=== PATIENT | female | born 1950 | race Caucasian/White ===

== ENCOUNTER 2017-06-02 14:30 | Outpatient (CLI) | payer MEDICARE ==
[~2017-06-02] VITALS: Ht 167.6 cm; Wt 68.5 kg
[~2017-06-02 14:30] MED LIST: CALCIUM; CLD600T PO; LUTE6TAB PO; LUTEIN
[2017-06-02] MEDS ORDERED: CALC-697 PO (14:58)
[2017-06-02] MEDS ORDERED: LEVO50TA6 PO (14:58)
[2017-06-02] MEDS ORDERED: LUTE6TAB PO (14:58)
== END 2017-06-02 15:04 ==
LOC: PREOP 14:30
PROVIDERS: ATTEND Surgery
DX: Z01.818 Encounter for other preprocedural examination (principal); Z80.0 Family history of malignant neoplasm of digestive organs

== ENCOUNTER → 2018-07-14 | Outpatient (CLI) | payer MEDICARE ==
[~2018-07-14] MED LIST changes: +CALC-697 PO; +LEVO50TA6 PO
--- NOTE | 2018-07-14 13:50 | Diagnostic Imaging Report ---
INDICATION: Postmenopausal screening for osteoporosis. COMPARISON: None. FINDINGS: AP Spine L1-L4: [BMD (g/cm2): 1.099] [T-Score: -0.8] [Z-Score: 0.6] [BMD Previous: ] [BMD % Change: ] LT Hip Neck: [BMD (g/cm2): 0.739] [T-Score: -2.1] [Z-Score: -0.6] LT Hip Total: [BMD (g/cm2):0.908] [T-Score:-0.8] [Z-Score: 0.5] [BMD Previous: ] [BMD % Change: ] RT Hip Neck: [BMD (g/cm2):0.777] [T-Score:-1.9] [Z-Score:-0.4] RT Hip Total: [BMD (g/cm2):0.902] [T-score:-0.8] [Z-Score:0.4] [BMD Previous: ] [BMD % Change: ] *Indicates significant change from prior examination based on 95% confidence level. World Health Organization criteria for BMD interpretation classify patients as Normal (T-score at or above -1.0), Osteopenic (T-score between -1.0 and -2.5) or Osteoporotic (T-score at or below -2.5). LIMITATIONS AND MODIFICATION: None. FRACTURE RISK (FRAX SCORE): The ten year probability of (%): Major Osteoporotic Fracture: [ ] Hip Fracture: [ ] IMPRESSION: 1. Normal bone mineral density. 2. Baseline examination. 3. See below National Osteoporosis Foundation guidelines on when to potentially initiate pharmacologic therapy. Based on the National Osteoporosis Foundation Guidelines, pharmacologic treatment should be initiated in any of the following, unless clinical conditions suggest otherwise: * Any patient with prior fragility fracture of the hip or vertebrae. A spine fracture indicates 5X risk for subsequent spine fracture and 2X risk for subsequent hip fracture. * Osteoporosis (T-score <-2.5). * Postmenopausal women and men age 50 and older with low bone mass/osteopenia (T-score between -1.0 and -2.5) by DXA and 10-year major osteoporotic fracture greater than 20% or a 10-year probability of hip fracture greater than 3%. These fracture risks are supplied above in the FRAX score, if applicable. * Clinician judgement and/or patient preferences may indicate treatment for people with 10-year fracture probabilities above or below these levels. Dictated by: Dictated on workstation # [id number]
== END ==
LOC: RAD 09:03
PROVIDERS: ATTEND Internal Medicine
DX: Z13.820 Encounter for screening for osteoporosis (principal); M81.0 Age-related osteoporosis without current pathological fracture; Z78.0 Asymptomatic menopausal state
CPT/HCPCS: 77080

== ENCOUNTER → 2020-05-16 | Outpatient (CLI) | payer MEDICARE, OTHER ==
--- NOTE | 2020-05-16 11:59 | Diagnostic Imaging Report ---
PROCEDURE: CT head without contrast. TECHNIQUE: Multiple contiguous axial images were obtained through the brain without the use of intravenous contrast. Auto Exposure Controls were utilized during the CT exam to meet ALARA standards for radiation dose reduction. INDICATION: Headache on the left side. No prior studies are available for comparison. FINDINGS: Ventricles and sulci are within normal limits. No sulcal effacement or midline shift is identified. No acute intra-axial or extra-axial hemorrhage is detected. Cisterns are patent. Visualized paranasal sinuses are clear. IMPRESSION: No acute intracranial process is detected. Dictated by: Dictated on workstation # [id number]
== END ==
LOC: RAD 11:45
PROVIDERS: ATTEND Internal Medicine
DX: R51.9 Headache, unspecified (principal)
CPT/HCPCS: 70450

== ENCOUNTER → 2020-05-22 | Outpatient (CLI) | payer MEDICARE, OTHER ==
[~2020-05-22] MED LIST changes: +GADOBUTROL 7.5 MMOL/7.5 ML (GADAVIST) VIAL IV ONE
[2020-05-22 07:24] LABS: CREATININE SERUM 1.05 MG/DL (0.60-1.30)
--- NOTE | 2020-05-22 09:39 | Diagnostic Imaging Report ---
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 Patient has been having episodes of left-sided head and face pain. Exam: MRI of the brain performed without and with 7 cc of Gadavist IV contrast. Sequences include axial DWI, ADC map, axial gradient echo, axial T2, axial FLAIR, axial T1, axial T1 post IV contrast, coronal T1 fat-sat post IV contrast, and sagittal T1 post IV contrast. Comparison: Head CT without contrast dated 05/16/2020. Findings: There is no evidence of acute cerebral infarct, intracranial hemorrhage, or gross mass effect. There is a small developmental venous anomaly in the left temporal lobe region. The brain parenchymal volume appears appropriate for patient's age. There is a few focal areas of increased T2 signal involving the white matter of both cerebral hemispheres, likely representing chronic small vessel ischemic disease. There is normal darling-white matter distinction. There is no significant midline shift or herniation. The [place] of [place] vascular structures show no gross abnormality as visualized. The pituitary gland, sella, and suprasellar regions are unremarkable as visualized. There is no evidence of hydrocephalus. The basal cisterns are unremarkable. The skull, extracranial soft tissue, and orbits are unremarkable. There is small mucous retention cyst in the floor of the left maxillary sinus and minimal mucosal thickening involving the right maxillary sinus, frontal sinus, and ethmoid sinus. Temporal bones show no significant abnormality. IMPRESSION: 1: There is no CT evidence of acute intracranial process. 2: There is mild age-related brain parenchymal changes. 3: There is mild paranasal sinus disease. Dictated by: Dictated on workstation # [id number]
== END ==
LOC: RAD 08:00
PROVIDERS: ATTEND Internal Medicine
DX: R93.0 Abnormal findings on diagnostic imaging of skull and head, not elsewhere classified (principal); J34.89 Other specified disorders of nose and nasal sinuses; Z86.79 Personal history of other diseases of the circulatory system; Z83.3 Family history of diabetes mellitus
CPT/HCPCS: 36415; 70553; 82565; 84520

== ENCOUNTER → 2023-02-04 | Outpatient (CLI) | payer MEDICARE, OTHER ==
[~2023-02-04] MED LIST changes: +ASPI-1238 PO; +GABA-486 PO; -GADOBUTROL 7.5 MMOL/7.5 ML (GADAVIST) VIAL IV ONE; +PANT40TA52 PO; +SUCR1TAB PO
--- NOTE | 2023-02-04 09:33 | Diagnostic Imaging Report ---
PROCEDURE: US Gallbladder. TECHNIQUE: Multiple real-time grayscale images were obtained over the right upper quadrant in various projections. INDICATION: Epigastric pain. Liver is normal in size at 14 cm. The portal vein is patent and shows normal direction of flow. No liver mass is detected. Gallbladder is without stones or sludge. There is no wall thickening or biliary duct dilatation. Pancreas is unremarkable. Aorta is nonaneurysmal. IVC is patent. The right kidney is without calculi or hydronephrosis. There is no ascites. IMPRESSION: Unremarkable gallbladder ultrasound. Dictated by: Dictated on workstation # [id number]
== END ==
LOC: CARD 07:14
PROVIDERS: ATTEND Internal Medicine
DX: R00.2 Palpitations (principal); R10.13 Epigastric pain
CPT/HCPCS: 76705; 93005; 93225; 93226

== ENCOUNTER 2023-02-07 00:10 | Observation (INO) | payer MEDICARE, OTHER ==
[~2023-02-07] VITALS: Ht 167.7 cm; Wt 69.0 kg
[~2023-02-07 00:10] MED LIST changes: -ASPI-1238 PO; -GABA-486 PO; -PANT40TA52 PO; -SUCR1TAB PO
[2023-02-07] MEDS ORDERED: NITROGLYCERIN 0.4 MG SL TABS BTL 25'S SL PRN ×2 (00:15→08:00)
--- NOTE | 2023-02-07 00:27 | ED Chest Pain ---
General Chief Complaint: Chest Pain Stated Complaint: CP Nursing Triage Note: BROUGHT IN BY [facility] FOR BURNING BETWEEN SHOULDER BLADES WHEN LAYING DOWN. PT REPORTS PAIN RADIATED TO CHEST. DENIES PAIN AT THIS TIME. Source: patient History of Present Illness Date Seen by Provider: Feb 07, 2023 Time Seen by Provider: 00:14 Initial Comments PT ARRIVES VIA EMS FROM HOME C/O CHEST PAIN AND UPPER BACK PAIN THAT BEGAN AROUND 2300 TONIGHT, HAD JUST LAID DOWN TO GO TO SLEEP PAIN WAS A BURNING SENSATION AND WAS VERY INTENSE, BUT PAIN IS GONE NOW NO SHORTNESS OF BREATH NO SWEATS NO DIZZINESS OR SYNCOPE NO PALPITATIONS NO NAUSEA/VOMITING NO SWELLING IN LEGS/FEET OR PAIN IN [facility] EMS GAVE 324 MG ASPIRIN PT STATES THAT RECENTLY SHE HAS BEEN HAVING SOME PALPITATIONS, AND WORE A HOLTER MONITOR THIS WEEK FROM WEDNESDAY UNTIL THIS MORNING. PT HAS HYPOTHYROIDISM AND NEUROPATHY NO OTHER MEDICAL PROBLEMS AND NO PRIOR HISTORY OF ANY CARDIAC PROBLEMS. PT IS NON-SMOKER, NON-DRINKER SHE DOES USE MARIJUANA PCP: DR. DE LA ROSA Allergies and Home Medications Allergies Coded Allergies: Sulfa (Sulfonamide Antibiotics) (Unverified Adverse Reaction, Intermediate, 06/02/17) Patient Home Medication List Home Medication List Reviewed: Yes Calcium Carbonate/Vitamin D3 (Calcium 1,000 + D3 Caplet) 1 Each Tablet, 1 EACH PO DAILY, (Reported) Entered as Reported by: VI BEST on 06/02/17 145 Levothyroxine Sodium (Levothyroxine Sodium) 50 Mcg Tablet, 50 MCG PO DAILY, (Reported) Entered as Reported by: VI BEST on 06/02/17 1458 Lutein (Lutein) 6 Mg Tablet, 6 MG PO DAILY, (Reported) Entered as Reported by: VI BEST on 06/02/17 145 Review of Systems Review of Systems Constitutional: no symptoms reported EENTM: No Symptoms Reported Respiratory: No Symptoms Reported Cardiovascular: See HPI Gastrointestinal: No Symptoms Reported Genitourinary: No Symptoms Reported Musculoskeletal: no symptoms reported Skin: no symptoms reported Psychiatric/Neurological: Anxiety Endocrine: No Symptoms Reported Hematologic/Lymphatic: No Symptoms Reported Past Cqtykji-Oxdlgj-Ipcspm Hx Patient Social History Tobacco Use?: No Smoking Status: Never a Smoker Smokeless Tobacco Frequency: Never a User Use of E-Cig and/or Vaping dev: No Use of E-Cig and/or Vaping Candelario: Never a User Substance use?: Yes Substance type: Marijuana Alcohol Use?: No Pt feels they are or have been: No Immunizations Up To Date Tetanus Booster (TDap): Unknown First/Initial COVID19 Vaccinat: X2 Seasonal Allergies Seasonal Allergies: Yes (MILD) Past Medical History Surgery/Hospitalization HX: EYE SX, HYPOTHRYOIDISM Surgeries: Yes (LEFT EYE SURGERY ON [place]) Eye Surgery Respiratory: No Cardiac: No Neurological: Yes (SUBARACHNOID BLEED 2009 AFTER A FALL) Neuropathy, Traumatic Brain Injury Reproductive Disorders: No VOIP NETWORK TECHNICIAN History: Menopausal Sexually Transmitted Disease: No HIV/AIDS: No Genitourinary: No Gastrointestinal: Yes Hemorrhoids, Polyps Musculoskeletal: No Endocrine: Yes Hypothyroidsim HEENT: Yes (LEFT EYE SURGERY ON [place]) Loss of Vision: Bilateral Hearing Impairment: Denies Cancer: No Psychosocial: No Integumentary: No Blood Disorders: No Adverse Reaction/Blood Tranf: No (N/A) Physical Exam Vital Signs Vital Signs - First Documented 02/07/23 00:10 Temp 36.5 Pulse 71 Resp 16 B/P (MAP) 151/82 (105) Pulse Ox 96 O2 Delivery Room Air Capillary Refill : Less Than 3 Seconds Height, Weight, BMI Height: 5'6.00" Weight: 151lbs. 0.0oz. [id number]; 24.00 BMI Method:Stated General Appearance: No Apparent Distress, WD/WN, Anxious HEENT: PERRL/EOMI Neck: Normal Inspection Respiratory: Chest Non Tender, Normal Breath Sounds, No Accessory Muscle Use, No Respiratory Distress Cardiovascular: Regular Rate, Rhythm, No Edema, No JVD, No Murmur, Normal Peripheral Pulses Gastrointestinal: Non Tender, Soft Extremity: Normal Inspection, Non Tender, No Calf Tenderness, No Pedal Edema Neurologic/Psychiatric: Alert, Oriented x3, No Motor/Sensory Deficits, cryptologist II- XII Norm as Tested Skin: Normal Color, Warm/Dry Progress/Results/Core Measures Results/Orders Lab Results Laboratory Tests Test 02/07/23 00:14 02/07/23 03:07 Range/Units White Blood Count 6.4 4.3-11.0 10^3/uL Red Blood Count 4.01 3.80-5.11 10^6/uL Hemoglobin 12.9 11.5-16.0 g/dL Hematocrit 38 35-52 % Mean Corpuscular Volume 96 80-99 fL Mean Corpuscular Hemoglobin 32 25-34 pg Mean Corpuscular Hemoglobin Concent 34 32-36 g/dL Red Cell Distribution Width 11.8 10.0-14.5 % Platelet Count 237 130-400 10^3/uL Mean Platelet Volume 10.5 9.0-12.2 fL Immature Granulocyte % (Auto) 0 % Neutrophils (%) (Auto) 42 42-75 % Lymphocytes (%) (Auto) 43 12-44 % Monocytes (%) (Auto) 12 0-12 % Eosinophils (%) (Auto) 2 0-10 % Basophils (%) (Auto) 1 0-10 % Neutrophils # (Auto) 2.7 1.8-7.8 10^3/uL Lymphocytes # (Auto) 2.7 1.0-4.0 10^3/uL Monocytes # (Auto) 0.8 0.0-1.0 10^3/uL Eosinophils # (Auto) 0.2 0.0-0.3 10^3/uL Basophils # (Auto) 0.1 0.0-0.1 10^3/uL Immature Granulocyte # (Auto) 0.0 0.0-0.1 10^3/uL Prothrombin Time 12.3 12.2-14.7 SEC INR Comment 0.9 0.8-1.4 Activated Partial Thromboplast Time 24 24-35 SEC D-Dimer 0.98 H 0.00-0.49 UG/ML Sodium Level 140 135-145 MMOL/L Potassium Level 3.6 3.6-5.0 MMOL/L Chloride Level 106 98-107 MMOL/L Carbon Dioxide Level 24 21-32 MMOL/L Anion Gap 10 5-14 MMOL/L Blood Urea Nitrogen 20 H 7-18 MG/DL Creatinine 1.01 0.60-1.30 MG/DL Estimat Glomerular Filtration Rate 59 BUN/Creatinine Ratio 20 Glucose Level 106 H 70-105 MG/DL Calcium Level 9.7 8.5-10.1 MG/DL Corrected Calcium 9.8 8.5-10.1 MG/DL Magnesium Level 2.2 1.6-2.4 MG/DL Total Bilirubin 0.2 0.1-1.0 MG/DL Aspartate Amino Transf (AST/SGOT) 29 5-34 U/L Alanine Aminotransferase (ALT/SGPT) 38 0-55 U/L Alkaline Phosphatase 103 40-136 U/L Total Creatine Kinase 63 29-168 U/L Creatine Kinase MB 0.7 <6.6 NG/ML Myoglobin 19.3 10.0-92.0 NG/ML Troponin I < 0.028 < 0.028 <0.028 NG/ML B-Type Natriuretic Peptide 15.9 <100.0 PG/ML Total Protein 6.9 6.4-8.2 GM/DL Albumin 3.9 3.2-4.5 GM/DL Amylase Level 44 25-125 U/L Lipase 109 H 8-78 U/L My Orders Orders - LYNN MUHAMMAD DO Ed Iv/Invasive Line Start (02/07/23 00:14) Ekg Tracing (02/07/23 00:14) O2 (02/07/23 00:14) Monitor-Rhythm Ecg Trace Only (02/07/23 00:14) Amylase (02/07/23 00:14) Bnp Jami (02/07/23 00:14) Cbc With Automated Diff (02/07/23 00:14) Comprehensive Metabolic Panel (02/07/23 00:14) Creatine Kinase (02/07/23 00:14) Creatine Kinase Mb (02/07/23 00:14) Fibrin Degradation Products (02/07/23 00:14) Lipase (02/07/23 00:14) Magnesium (02/07/23 00:14) Protime With Inr (02/07/23 00:14) Partial Thromboplastin Time (02/07/23 00:14) Myoglobin Serum (02/07/23 00:14) Troponin I [place] (02/07/23 00:14) Chest 1 View, Ap/Pa Only (02/07/23 00:14) Nitroglycerin 0.4 Mg Btl 25's (Nitrostat (02/07/23 00:15) Ct Angio Chest W (R/O Pe) (02/07/23 01:29) Iohexol Injection (Omnipaque 350 Mg/Ml 1 (02/07/23 02:45) Received Contrast (Hold Metformin- Contr (02/07/23 02:45) Ns (Ivpb) (Sodium Chloride 0.9% Ivpb Bag (02/07/23 02:45) Troponin I [place] (02/07/23 02:55) Ekg Tracing (02/07/23 02:55) Medications Given in ED Current Medications Medications Dose Ordered Sig/[place] Route Start Time Stop Time Status Last Admin Dose Admin Iohexol 100 ml ONCE ONCE IV 02/07/23 02:45 02/07/23 03:02 DC 02/07/23 02:42 64 ML Sodium Chloride 100 ml ONCE ONCE IV 02/07/23 02:45 02/07/23 03:02 DC 02/07/23 02:42 69 ML Vital Signs/I&O 02/07/23 00:10 Temp 36.5 Pulse 71 Resp 16 B/P (MAP) 151/82 (105) Pulse Ox 96 O2 Delivery Room Air Blood Pressure Mean: 105 Progress Progress Note : Progress Note VITALS ON ARRIVAL: TEMP 36.5=97.7, HR 17, RR 16, BP 151/82, O2 SAT 96% ON ROOM AIR NO MEDICATIONS GIVEN DURING ER STAY, PT HAD NO COMPLAINTS FOR ENTIRE STAY, [facility] HAD GIVEN ASPIRIN PRIOR TO ARRIVAL LABS INCLUDING CBC, CMP, TROPONIN, BNP, COAGULATION STUDIES, D-DIMER, WELL EKG, CXR, CT CHEST ANGIOGRAM ORDERED CBC UNREMARKABLE CMP --NORMAL ELECTROLYTES, NORMAL RENAL FUNCTION, NORMAL LIVER FUNCTION, LIPASE MILDLY ELEVATED AT 109 TROPONIN IS NEGATIVE, IS 3 HOUR REPEAT TROPONIN PT/PTT/INR NORMAL. D-DIMER SLIGHTLY ELEVATED AT 0.98 EKG IS UNREMARKABLE, IS REPEAT EKG CXR IS UNREMARKABLE CT CHEST ANGIOGRAM DOES NOT SHOW ANY ACUTE FINDINGS PT REMAINED SYMPTOM-FREE FOR ENTIRE ER STAY, AND VITALS REMAINED NORMAL PT IS NOT COMFORTABLE GOING HOME, SHE STATES THE PAIN SHE HAD WAS SO INTENSE, AND HAD NEVER HAD ANYTHING LIKE THAT BEFORE. Initial ECG Impression Date: Feb 07, 2023 Initial ECG Impression Time: 00:20 Initial ECG Rate: 66 Initial ECG Rhythm: Normal Sinus Initial ECG Intervals: Normal Initial ECG Impression: Normal Initial ECG Comparisson: No Previous ECG Available Comment INTERPRETED BY ME EKG : EKG Time: 03:16 Rate: 53 Rhythm: S.Antonino Intervals: Normal ECG Comparisson: Unchanged Comment INTERPRETED BY ME Diagnostic Imaging Comments CXR--NO ACUTE PROCESS, PENDING RADIOLOGIST REVIEW CT CHEST ANGIOGRAM--PER [facility] VIA FAX AT [phone] -NO P.E. OR ACUTE FINGINGS Reviewed: Reviewed by Me Departure Communication (Admissions) 0355--SPOKE WITH DR. DE LA ROSA, ACCEPTS PT FOR ADMIT. WILL BE HOLDING/BOARDING PT HER IN ER UNTIL AFTER 0700 DUE TO STAFFING ISSUES 0630--SPOKE WITH DR. DE LA ROSA, UPDATE GIVEN. SHE WILL DO ADMIT ORDERS Impression Primary Impression: Chest pain Disposition: ADMITTED INPATIENT Condition: Stable Admissions Decision to Admit Reason: Admit from ER (General) Decision to Admit/Date: Feb 07, 2023 Time/Decision to Admit Time: 04:00 Departure-Patient Inst. Referrals: IVIS DE LA ROSA DO (PCP/Family) Primary Care Physician LYNN MUHAMMAD DO Feb 07, 2023 00:27
[2023-02-07 00:41] LABS: BASOPHILS # (AUTO) 0.1 10^3/uL (0.0-0.1); BASOPHILS % (AUTO) 1 % (0-10); EOSINOPHILS # (AUTO) 0.2 10^3/uL (0.0-0.3); EOSINOPHILS % (AUTO) 2 % (0-10); HEMATOCRIT 38 % (35-52); HEMOGLOBIN 12.9 g/dL (11.5-16.0); LYMPHOCYTES # (AUTO) 2.7 10^3/uL (1.0-4.0); LYMPHOCYTES % (AUTO) 43 % (12-44); MEAN CORPUSCULAR HEMOGLOBIN 32 pg (25-34); MEAN CORPUSCULAR HGB CONC 34 g/dL (32-36); MEAN CORPUSCULAR VOLUME 96 fL (80-99); MEAN PLATELET VOLUME 10.5 fL (9.0-12.2); MONOCYTES # (AUTO) 0.8 10^3/uL (0.0-1.0); MONOCYTES % (AUTO) 12 % (0-12); NEUTROPHILS # (AUTO) 2.7 10^3/uL (1.8-7.8); NEUTROPHILS % (AUTO) 42 % (42-75); PLATELET COUNT 237 10^3/uL (130-400); WHITE BLOOD COUNT 6.4 10^3/uL (4.3-11.0)
[2023-02-07 00:48] LABS: CHLORIDE 106 MMOL/L (98-107); POTASSIUM 3.6 MMOL/L (3.6-5.0); SODIUM 140 MMOL/L (135-145)
[2023-02-07 00:49] LABS: INR 0.9 (0.8-1.4); PROTHROMBIN TIME PATIENT 12.3 SEC (12.2-14.7)
[2023-02-07 00:52] LABS: FIBRIN DEGRADATION PRODUCTS 0.98 UG/ML (0.00-0.49)
[2023-02-07 00:56] LABS: ALBUMIN 3.9 GM/DL (3.2-4.5)
[2023-02-07 00:57] LABS: AMYLASE 44 U/L (25-125); CALCIUM 9.7 MG/DL (8.5-10.1)
[2023-02-07 00:58] LABS: GLUCOSE 106 MG/DL (70-105); TOTAL PROTEIN 6.9 GM/DL (6.4-8.2)
[2023-02-07 01:00] LABS: BILIRUBIN,TOTAL 0.2 MG/DL (0.1-1.0); CARBON DIOXIDE 24 MMOL/L (21-32)
[2023-02-07 01:02] LABS: ALKALINE PHOSPHATASE 103 U/L (40-136); CREATININE SERUM 1.01 MG/DL (0.60-1.30); GFR ESTIMATED 59
[2023-02-07 01:03] LABS: BUN/CREATININE RATIO 20
[2023-02-07 01:05] LABS: ALANINE AMINOTRANSFERASE 38 U/L (0-55); MAGNESIUM 2.2 MG/DL (1.6-2.4)
[2023-02-07 01:06] LABS: CREATINE KINASE 63 U/L (29-168); LIPASE 109 U/L (8-78)
[2023-02-07 01:13] LABS: CREATINE KINASE MB 0.7 NG/ML (<6.6)
[2023-02-07] MEDS ORDERED: HOLD METFORMIN - RECEIVED CONTRAST 20 ML VIAL IV SCH (02:45)
[2023-02-07] MEDS ORDERED: NS 100 ML (IVPB) BAG IV ONE (02:45)
[2023-02-07] MEDS ORDERED: IOHEXOL 350 MG/ML 100 ML (OMNIPAQUE 350) VIAL IV ONE (02:45)
--- NOTE | 2023-02-07 06:40 | Diagnostic Imaging Report ---
Technique: CTA of the chest was performed. 3-D reformats were obtained and reviewed. All CT scans use one or more of the following dose optimizing techniques: automated exposure control, MA and/or KvP adjustment based on a patient size and exam type, or iterative reconstruction. Reason for exam: Back pain. Chest pain. COMPARISON: Chest radiograph performed earlier the same date. FINDINGS: The ascending thoracic aorta measures 3.9 cm in diameter. The descending thoracic aorta measures 2.1 cm in diameter. No evidence of dissection. The heart size is within normal limits. No pericardial effusion is present. There is no mediastinal, hilar, or axillary lymphadenopathy. The lungs demonstrate no pulmonary nodules or masses. Mild scarring is seen in the lung apices. There are no focal areas of consolidation. No central endobronchial obstructing lesions are identified. There is no pleural effusion or pneumothorax. The osseous structures demonstrate no acute abnormalities. Limited views of the upper abdominal structures demonstrate no acute abnormalities. Both adrenal glands are unremarkable. IMPRESSION: 1. Ectasia of the ascending thoracic aorta measuring 3.9 cm. No evidence of dissection. 2. No focal consolidation or pleural effusion. Agree with overnight report. Dictated by: Dictated on workstation # [id number]
--- NOTE | 2023-02-07 06:55 | History & Physical ---
History of Present Illness HPI/Chief Complaint CC: Chest pain HPI: This is a 72yoWF clinic patient of mine who has a h/o hypothyroidism, left sided trigeminal neuralgia and insomnia who presents to the ER with abrupt onset of chest pain which awoke her at night. No evidence of ACS since NSR of EKG and Cardiology consultation did not assess any concerns to undergo invasive testing. Patient has been taking CBD gummies to help her sleep and wonders if this is GERD issues since GB USG was normal when completed 2 days ago so she was placed on PPI and Carafate and will DC today and she would like to establish with her 's Software Release Engineer Dr Dejesus as an outpatient so that will be arranged when I see her in my clinic. Source: patient Exam Limitations: no limitations Date Seen 02/07/23 Time Seen by a Provider: 11:00 Attending Physician Thuy Fernando DO PCP Admitting Physician: Attending Physician: Referring Physician Date of Admission Home Medications & Allergies Home Medications Reviewed patient Home Medication Reconciliation performed by pharmacy medication reconciliations set up mold technician and/or nursing. Patients Allergies have been reviewed. Allergies Allergies Coded Allergies Sulfa (Sulfonamide Antibiotics) (Unverified Adverse Reaction, Intermediate, 06/02/17) Past Dyqfbab-Bsdsuh-Dicetl Hx Past Med/Social Hx: Reviewed Nursing Past Med/Soc Hx, Reviewed and Corrections made Patient Social History Marrital Status: Employed/Student: retired Alcohol Use: Denies Use Smoking Status: Never a Smoker Recent Hopitalizations: No Immunizations Up To Date Tetanus Booster (TDap): Unknown Date of Influenza Vaccine: Apr 12, 2017 Seasonal Allergies Seasonal Allergies: Yes (MILD) Past Medical History left sided trigemial neuralgia Reproductive: No Sexually Transmitted Disease: No HIV/AIDS: No Gastrointestinal: Hemorrhoids, Polyps Endocrine: Hypothyroidsim Loss of Vision: Bilateral Hearing Impairment: Denies Adverse Reaction to Blood Springer: No (N/A) Review of Systems Constitutional: see HPI Cardiovascular: chest pain Physical Exam Physical Exam Vital Signs Vital Signs - First Documented 02/07/23 00:10 Temp 36.5 Pulse 71 Resp 16 B/P (MAP) 151/82 (105) Pulse Ox 96 O2 Delivery Room Air Capillary Refill : Less Than 3 Seconds Height, Weight, BMI Height: 5'6.00" Weight: 151lbs. 0.0oz. 68.417114cv; 24.00 BMI Method:Stated General Appearance: No Apparent Distress, WD/WN Eyes: Bilateral Eye Normal Inspection, Bilateral Eye PERRL HEENT: PERRL/EOMI, TMs Normal, Normal ENT Inspection, Pharynx Normal Neck: Full Range of Motion, Normal Inspection, Non Tender, Supple, Carotid Bru it Respiratory: Chest Non Tender, Lungs Clear, Normal Breath Sounds, No Accessory Muscle Use, No Respiratory Distress Cardiovascular: Regular Rate, Rhythm, No Edema, No Gallop, No JVD, No Murmur, Normal Peripheral Pulses Gastrointestinal: Normal Bowel Sounds, No Organomegaly, No Pulsatile Mass, Non Tender, Soft Back: Normal Inspection, No CVA Tenderness, No Vertebral Tenderness Extremity: Normal Capillary Refill, Normal Inspection, Normal Range of Motion, Non Tender, No Calf Tenderness, No Pedal Edema Neurologic/Psychiatric: Alert, Oriented x3, No Motor/Sensory Deficits, Normal Mood/Affect Skin: Normal Color, Warm/Dry Lymphatic: No Adenopathy Results Results/Procedures Labs Laboratory Tests 02/07/23 00:14 Patient resulted labs reviewed. Assessment/Plan Admission Diagnosis Assessment: Chest pain without evidence of ACS with negative EKG and troponin and Cardiology opinion Hypothyroidism Left sided trigeminal neuralgia Plan: DC home on PPI and Carafate Admission Status: Observation Clinical Quality Measures AMI/AHF: ASA po Prior to arrival: Yes (325) THUY FERNANDO DO Feb 07, 2023 06:55
--- NOTE | 2023-02-07 07:25 | Diagnostic Imaging Report ---
EXAMINATION: Chest radiograph, portable AP view. DATE: 02/07/2023 1:00 AM INDICATION: 72-year-old female, chest pain. COMPARISON: None. FINDINGS: Heart size and mediastinal contours are unremarkable. There is no identified pneumothorax. There is no large pleural effusion. There is no identified focal airspace consolidation. IMPRESSION: 1. No identified acute cardiopulmonary abnormality. Dictated by: Dictated on workstation # [id number]
[2023-02-07] MEDS ORDERED: LEVOTHYROXINE 75 MCG (LEVOTHROID) TABLET PO SCH ×2 (07:59→09:21)
[2023-02-07] MEDS ORDERED: ENOXAPARIN 40 MG/0.4 ML (LOVENOX) SYR SC SCH (08:00)
[2023-02-07] MEDS ORDERED: LACTULOSE SYRUP 10GM/15ML (ENULOSE) 30ML UDC PO PRN (08:00)
[2023-02-07] MEDS ORDERED: ACETAMINOPHEN 325 MG TABLET PO PRN (08:00)
[2023-02-07] MEDS ORDERED: ONDANSETRON 4 MG/2 ML (SDV) Z0FRAN IV PRN (08:00)
[2023-02-07] MEDS ORDERED: ANTACID SUSP 30 ML UDC (MYLANTA) PO PRN (08:00)
[2023-02-07] MEDS ORDERED: polyethylene glycoL POWDER 17 GM (MIRALAX) PACK PO PRN (08:00)
[2023-02-07] MEDS ORDERED: BISACODYL 10 MG SUPP (DULCOLAX) PR PRN (08:00)
[2023-02-07] MEDS ORDERED: MILK OF MAGNESIA 400 MG/5 ML 30 ML UDC PO PRN (08:00)
[2023-02-07] MEDS ORDERED: morphine INJ 4 MG/ML 1 ML (VIAL/SYRINGE) IV PRN (08:00)
[2023-02-07] MEDS ORDERED: diphenhydrAMINE 25 MG TAB (BENADRYL) PO PRN (08:00)
[2023-02-07] MEDS ORDERED: diphenhydrAMINE 50 MG/ML INJ (BENADRYL) IVP PRN (08:00)
[2023-02-07] MEDS ORDERED: CALCIUM CARBONATE 500 MG (TUMS) TAB.CHEW PO PRN (08:00)
[2023-02-07] MEDS ORDERED: NS IV 1000 ML 1,000 ML IV SCH (08:00)
[2023-02-07] MEDS ORDERED: ONDANSETRON 4 MG (ZOFRAN) ORAL DISSOLVE TAB PO PRN (08:00)
[2023-02-07] MEDS ORDERED: MELATONIN 3 MG TABLET PO PRN (08:00)
[2023-02-07] MEDS ORDERED: PATIENT MAY USE OWN MEDS, ALL PO SCH (08:00)
[2023-02-07] MEDS ORDERED: GABAPENTIN 100 MG (NEURONTIN) CAP PO PRN ×2 (08:00→09:30)
[2023-02-07 08:04] LABS: TRIGLYCERIDES 167 MG/DL (<150); VLDL CHOLESTEROL 33 MG/DL (5-40)
[2023-02-07 08:09] LABS: CHOLESTEROL 162 MG/DL (< 200)
[2023-02-07 08:10] LABS: HDL CHOLESTEROL 45 MG/DL (40-60)
[2023-02-07] MEDS ORDERED: DOCUSATE SODIUM 100 MG (COLACE) CAP PO SCH (09:00)
[2023-02-07] MEDS ORDERED: ASPIRIN E.C. 81 MG (ECOTRIN) TAB PO SCH (09:00)
[2023-02-07] MEDS ORDERED: SENNOSIDES 8.6 MG (SENOKOT) TAB PO SCH (09:00)
--- NOTE | 2023-02-07 11:03 | Consultation-Cardiology ---
HPI-Cardiology Cardiology Consultation: Date of Consultation 02/07/23 Time Seen by a Provider: 10:55 Date of Admission Attending Physician Thuy Fernando DO Admitting Physician Admitting Physician: Thuy Fernando DO Attending Physician: Thuy Fernando DO Consulting Physician MARY HOWARD MD, MA, FACP, FACC, FSCAI, CCDS Physician requesting consult: Dr Fernando HPI: Chief Complaint: Chest discomfort 72 yo woman admitted to Dr Fernando last night with upper mid back pain that came on rather suddenly, was severe, and radiated to the front and lasted 30 to 60 min. Went away w/o any particular intervention. Was not associated with other symptoms. Has experienced it before, but not to this intensity. Has not recurred since last night Review of Systems-Cardiology Review of Systems Constitutional: No malaise, No weight loss, No weight gain Eyes: No vision change Ears/Nose/Throat: No ear discharge, No nasal drainage, No recent hearing loss Respiratory: As described under HPI Cardiovascular: As described under HPI Gastrointestinal: No diarrhea, No nausea, No vomiting Genitourinary: No dysuria, No hematuria Musculoskeletal: As describe under HPI, back pain Skin: No rash, No ulcerations Psychiatric/Neurological: No seizure, No focal weakness, No syncope Hematologic: No bleeding abnormalities [id number] Hx Patient Social History Smoking Status: Never a Smoker Alcohol Use?: No Substance type: Marijuana Pt feels they are or have been: No Immunizations Up To Date Tetanus Booster (TDap): Unknown Date of Influenza Vaccine: Apr 12, 2017 Past Medical History PMH As described under Assessment. Family Medical History Family Medical History: No fam h/o early CAD or SCD Allergies and Home Medications Allergies Coded Allergies: Sulfa (Sulfonamide Antibiotics) (Unverified Adverse Reaction, Intermediate, 06/02/17) Patient Home Medication List Home Medication List Reviewed: Yes Calcium Carbonate/Vitamin D3 (Calcium 1,000 + D3 Caplet) 1 Each Tablet, 1 EACH PO DAILY, (Reported) Entered as Reported by: VI BEST on 06/02/17 3098 Levothyroxine Sodium (Levothyroxine Sodium) 50 Mcg Tablet, 50 MCG PO DAILY, (Reported) Entered as Reported by: VI BEST on 06/02/17 0435 Lutein (Lutein) 6 Mg Tablet, 6 MG PO DAILY, (Reported) Entered as Reported by: VI BEST on 06/02/17 7273 Physical Exam-Cardiology Physical Exam Vital Signs/I&O 02/07/23 02/07/23 02/07/23 02/07/23 00:10 08:00 08:15 08:39 Temp 36.5 36.1 Pulse 71 64 68 Resp 16 15 B/P (MAP) 151/82 (105) 127/72 Pulse Ox 96 96 O2 Delivery Room Air Room Air Room Air Capillary Refill : Less Than 3 Seconds Constitutional: AAO x 3, well-developed, well-nourished HEENT: EOMI, hearing is well preserved; No xanthelasmas are seen Neck: carotid pulses are 2 + bilaterally, with good upstrokes Respiratory: No accessory muscle use; chest expansion is symmetric, chest is bilaterally symmetric, other (good, bilat air entry) Cardiovascular: regular rate-rhythm, S1 and S2, systolic murmur (soft DEYVI at card base) Gastrointestinal: No tender; soft; No guarding, No rebound; audible bowel sounds Extremities: No clubbing, No cyanosis, No significant edema Neurologic/Psychiatric: oriented x 3, other (moves all limbs) Skin: normal color, warm/dry; No cyanosis, No cool, No diaphoresis, No rash on exposed areas, No ulcerations on exposed areas Data Review Labs Laboratory Tests 02/07/23 00:14: White Blood Count 6.4, Red Blood Count 4.01, Hemoglobin 12.9, Hematocrit 38, Mean Corpuscular Volume 96, Mean Corpuscular Hemoglobin 32, Mean Corpuscular Hemoglobin Concent 34, Red Cell Distribution Width 11.8, Platelet Count 237, Mean Platelet Volume 10.5, Immature Granulocyte % (Auto) 0, Neutrophils (%) (Auto) 42, Lymphocytes (%) (Auto) 43, Monocytes (%) (Auto) 12, Eosinophils (%) (Auto) 2, Basophils (%) (Auto) 1, Neutrophils # (Auto) 2.7, Lymphocytes # (Auto) 2.7, Monocytes # (Auto) 0.8, Eosinophils # (Auto) 0.2, Basophils # (Auto) 0.1, Immature Granulocyte # (Auto) 0.0, Prothrombin Time 12.3, INR Comment 0.9, A ctivated Partial Thromboplast Time 24, D-Dimer 0.98H, Sodium Level 140, [place] um Level 3.6, Chloride Level 106, Carbon Dioxide Level 24, Anion Gap 10, Blood Urea Nitrogen 20H, Creatinine 1.01, Estimat Glomerular Filtration Rate 59, BUN/Creatinine Ratio 20, Glucose Level 106H, Calcium Level 9.7, Corrected Calcium 9.8, Magnesium Level 2.2, Total Bilirubin 0.2, Aspartate Amino Transf (AST/SGOT) 29, Alanine Aminotransferase (ALT/SGPT) 38, Alkaline Phosphatase 103, Total Creatine Kinase 63, Creatine Kinase MB 0.7, Myoglobin 19.3, Troponin I < 0.028, B-Type Natriuretic Peptide 15.9, Total Protein 6.9, Albumin 3.9, Amylase Level 44, Lipase 109H 02/07/23 03:07: Troponin I < 0.028, Triglycerides Level 167H, Cholesterol Level 162, LDL Cholesterol Direct 101, VLDL Cholesterol 33, HDL Cholesterol 45 Laboratory Tests 02/07/23 00:14 A/P-Cardiology Assessment/Admission Diagnosis Upper back and chest pain of undetermined etiology - no evidence of ACS (base on serial card enz and ECGs) - no evidence of PE or aortic dissection (base on CT angio at presentation) Hypothyroidism - treated with thyroid replacement therapy 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 Outpt cardiac f/u advised. Discussed with Dr. Fernando. Discussed with patient and family Clinical Quality Measures AMI/AHF: ASA po Prior to arrival: Yes (325) MARY HOWARD MD FACP FAC CCDS Feb 07, 2023 11:03
[2023-02-07 11:41] VITALS: BP 127/72
[2023-02-07 11:42] VITALS: BP 123/57
[2023-02-07] MEDS ORDERED: PANTOPRAZOLE 40 MG (PROTONIX) TAB PO ONE (11:45)
[2023-02-07] MEDS ORDERED: SUCRALFATE 1 GM (CARAFATE) TAB PO SCH (11:45)
[2023-02-07] MEDS ORDERED: GABA-486 PO (11:57)
[2023-02-07] MEDS ORDERED: LEVO50TA6 PO (11:57)
[2023-02-07] MEDS ORDERED: ASPI-1238 PO (11:58)
[2023-02-07] MEDS ORDERED: SUCR1TAB PO (11:58)
[2023-02-07] MEDS ORDERED: PANT40TA52 PO (11:58)
--- NOTE | 2023-02-07 11:59 | Discharge Summary ---
Diagnosis/Chief Complaint Date of Admission Feb 07, 2023 at 07:47 Date of Discharge Discharge Date: Feb 07, 2023 Discharge Diagnosis Chest pain without evidence of ACS Hypothyroidism Left sided trigeminal neuralgia Discharge Summary Discharge Physical Examination Allergies: Coded Allergies: Sulfa (Sulfonamide Antibiotics) (Unverified Adverse Reaction, [place] diatbina, 06/02/17) Vitals & I&Os Vital Signs Date Time Temp Pulse Resp B/P (MAP) Pulse Ox O2 Delivery O2 Flow Rate FiO2 02/07/23 12:30 02/07/23 11:42 36.0 71 19 94 02/07/23 08:39 Room Air Hospital Course Was the Problem List Reviewed?: Yes See HPI Labs (last 24 hrs) Laboratory Tests 02/07/23 00:14: White Blood Count 6.4, Red Blood Count 4.01, Hemoglobin 12.9, Hematocrit 38, Mean Corpuscular Volume 96, Mean Corpuscular Hemoglobin 32, Mean Corpuscular Hemoglobin Concent 34, Red Cell Distribution Width 11.8, Platelet Count 237, Mean Platelet Volume 10.5, Immature Granulocyte % (Auto) 0, Neutrophils (%) (Auto) 42, Lymphocytes (%) (Auto) 43, Monocytes (%) (Auto) 12, Eosinophils (%) (Auto) 2, Basophils (%) (Auto) 1, Neutrophils # (Auto) 2.7, Lymphocytes # (Auto) 2.7, Monocytes # (Auto) 0.8, Eosinophils # (Auto) 0.2, Basophils # (Auto) 0.1, Immature Granulocyte # (Auto) 0.0, Prothrombin Time 12.3, INR Comment 0.9, Activated Partial Thromboplast Time 24, D-Dimer 0.98H, Sodium Level 140, Potassium Level 3.6, Chloride Level 106, Carbon Dioxide Level 24, Anion Gap 10, Blood Urea Nitrogen 20H, Creatinine 1.01, Estimat Glomerular Filtration Rate 59, BUN/Creatinine Ratio 20, Glucose Level 106H, Calcium Level 9.7, Corrected Calcium 9.8, Magnesium Level 2.2, Total Bilirubin 0.2, Aspartate Amino Transf (AST/SGOT) 29, Alanine Aminotransferase (ALT/SGPT) 38, Alkaline Phosphatase 103, Total Creatine Kinase 63, Creatine Kinase MB 0.7, Myoglobin 19.3, Troponin I < 0.028, B-Type Natriuretic Peptide 15.9, Total Protein 6.9, Albumin 3.9, Amylase Level 44, Lipase 109H 02/07/23 03:07: Troponin I < 0.028, Triglycerides Level 167H, Cholesterol Level 162, LDL Cholesterol Direct 101, VLDL Cholesterol 33, HDL Cholesterol 45 Pending Labs Laboratory Tests 02/07/23 00:14: White Blood Count 6.4, Red Blood Count 4.01, Hemoglobin 12.9, Hematocrit 38, Mean Corpuscular Volume 96, Mean Corpuscular Hemoglobin 32, Mean Corpuscular Hemoglobin Concent 34, Red Cell Distribution Width 11.8, Platelet Count 237, Mean Platelet Volume 10.5, Immature Granulocyte % (Auto) 0, Neutrophils (%) (Auto) 42, Lymphocytes (%) (Auto) 43, Monocytes (%) (Auto) 12, Eosinophils (%) (Auto) 2, Basophils (%) (Auto) 1, Neutrophils # (Auto) 2.7, Lymphocytes # (Auto) 2.7, Monocytes # (Auto) 0.8, Eosinophils # (Auto) 0.2, Basophils # (Auto) 0.1, Immature Granulocyte # (Auto) 0.0, Prothrombin Time 12.3, INR Comment 0.9, Activated Partial Thromboplast Time 24, D-Dimer 0.98, Sodium Level 140, Potassium Level 3.6, Chloride Level 106, Carbon Dioxide Level 24, Anion Gap 10, Blood Urea Nitrogen 20, Creatinine 1.01, Estimat Glomerular Filtration Rate 59, BUN/Creatinine Ratio 20, Glucose Level 106, Calcium Level 9.7, Corrected Calcium 9.8, Magnesium Level 2.2, Total Bilirubin 0.2, Aspartate Amino Transf (AST/SGOT) 29, Alanine Aminotransferase (ALT/SGPT) 38, Alkaline Phosphatase 103, Total Creatine Kinase 63, Creatine Kinase MB 0.7, Myoglobin 19.3, Troponin I < 0.028, B-Type Natriuretic Peptide 15.9, Total Protein 6.9, Albumin 3.9, Amylase Level 44, Lipase 109 02/07/23 03:07: Troponin I < 0.028, Triglycerides Level 167, Cholesterol Level 162, LDL Cholesterol Direct 101, VLDL Cholesterol 33, HDL Cholesterol 45 Discharge Home Medications: Active Scripts Active Pantoprazole Sodium 40 Mg Tablet.dr 40 Mg PO DAILY Sucralfate 1 Gram Tablet 1 Gm PO ACHS Aspirin EC (Aspirin) 81 Mg Tablet.dr 81 Mg PO DAILY Gabapentin 100 Mg Capsule 100 Mg PO TID PRN 39 Days Levothyroxine Sodium 50 Mcg Tablet 75 Mcg PO DAILY 30 Days Reported Lutein 6 Mg Tablet 6 Mg PO DAILY Calcium 1,000 + D3 Caplet (Calcium Carbonate/Vitamin D3) 1 Each Tablet 1 Each PO DAILY Instructions to patient/family Please see electronic discharge instructions given to patient. Clinical Quality Measures AMI/AHF: ASA po Prior to arrival: Yes (325) IVIS DE LA ROSA DO Feb 07, 2023 11:59
[2023-02-07] MEDS ORDERED: RT-ALBUTEROL SULF 2.5 MG/3 ML PRE-MIX VIAL INH PRN (12:00)
[2023-02-08] MEDS ORDERED: PANTOPRAZOLE 40 MG (PROTONIX) TAB PO SCH (09:00)
== END 2023-02-07 12:00 | disposition home or self-care (01) ==
LOC: EDUNIT# 00:10 → ER 00:11 → CSD 07:47
PROVIDERS: ADMIT Internal Medicine; ATTEND Internal Medicine
DX: R07.9 Chest pain, unspecified (principal); M54.89 Other dorsalgia; E03.9 Hypothyroidism, unspecified; G50.0 Trigeminal neuralgia; Z79.890 Hormone replacement therapy; Z79.899 Other long term (current) drug therapy
CPT/HCPCS: 36415; 71045; 71275; 80053; 80061; 82150; 82550; 82553; 83690; 83735; 83874; 83880; 84484; 85025; 85379; 85610; 85730; 93005; 93041; 96372